=== PATIENT | female | born 1955 | race Caucasian/White ===

== ENCOUNTER 2023-03-24 06:07 | Inpatient (IN) ==
[2023-03-24] MEDS ORDERED: NS 100 ML IV 100 ML ONE (06:53)
[2023-03-24] MEDS ORDERED: ANCEF VIAL 1 GRAM ONE (06:53)
[2023-03-24] MEDS ORDERED: LR 1,000 ML IV 1,000 ML IV ONE ×2 (06:53→08:47)
[2023-03-24] MEDS ORDERED: PEPCID 20 MG VIAL ONE (07:03)
[2023-03-24] MEDS ORDERED: ZOFRAN INJ 4 MG VIAL ONE (07:03)
[2023-03-24] MEDS ORDERED: REGLAN INJ 10 MG VIAL ONE (07:08)
[2023-03-24] MEDS ORDERED: DUONEB 0.5 MG/3 MG (3 mL) NEB ONE (07:18)
[2023-03-24] MEDS ORDERED: KETAMINE 50 MG/5 ML-NACL SYRNG ONE (07:24)
[2023-03-24] MEDS ORDERED: DECADRON INJ ONE (07:25)
[2023-03-24] MEDS ORDERED: FENTANYL VIAL INJ 100 mcg ONE (07:25)
[2023-03-24] MEDS ORDERED: BRIDION ONE (07:25)
[2023-03-24] MEDS ORDERED: VERSED ONE (07:25)
[2023-03-24] MEDS ORDERED: ROBINUL ONE (07:25)
[2023-03-24] MEDS ORDERED: XYLOCAINE 2 % (PLAIN) ONE (07:25)
[2023-03-24] MEDS ORDERED: OFIRMEV IV 1000 MG VIAL 1,000 MG/100 ML VIAL IV ONE (07:25)
[2023-03-24] MEDS ORDERED: ZEMURON 100 MG VIAL ONE (07:25)
[2023-03-24] MEDS ORDERED: DIPRIVAN VIAL 20 ML ONE (07:25)
[2023-03-24] MEDS ORDERED: PRECEDEX INJ VIAL IVP ONE (07:26)
[2023-03-24] MEDS ORDERED: POLYMYXIN B SULFATE ONE (07:31)
[2023-03-24] MEDS ORDERED: VENTOLIN or PROAIR HFA ONE (07:48)
[2023-03-24] MEDS ORDERED: ULTANE GAS IN ONE (07:48)
[2023-03-24 07:52] VITALS: BMI 25.7
[2023-03-24] MEDS ORDERED: MARCAINE 0.5% ONE (08:09)
[2023-03-24] MEDS ORDERED: NEO-SYNEPHRINE INJ ONE (08:23)
[2023-03-24] MEDS ORDERED: DILAUDID INJ ONE (08:41)
[2023-03-24] MEDS ORDERED: NORMODYNE INJ 20 MG VIAL ONE (08:45)
[2023-03-24] MEDS ORDERED: BENADRYL INJ 50 MG VIAL IVP PRN (09:38)
[2023-03-24] MEDS ORDERED: DILAUDID INJ IVP PRN (09:38)
[2023-03-24] MEDS ORDERED: BARHEMSYS INJ IVP PRN (09:38)
[2023-03-24] MEDS: D5 1/2 NS 1,000 ML 1,000 ML IV SCH ×3 (11:21→20:25)
[2023-03-24] MEDS: ZOFRAN INJ 4 MG VIAL IVP SCH ×3 (11:21→17:29)
[2023-03-24] MEDS: PROTONIX INJ 40 MG VIAL IVP SCH ×2 (11:21→20:25)
[2023-03-24] MEDS: LOVENOX INJ 40 MG SYR SC SCH (11:29)
[2023-03-24] MEDS: DUONEB 0.5 MG/3 MG (3 mL) NEB SCH ×2 (12:58→16:28)
[2023-03-24] MEDS: ANCEF VIAL 1 GRAM IVP SCH ×2 (13:23→22:45)
[2023-03-24] MEDS: NICOTINE PATCH TD SCH (13:23)
[2023-03-24] MEDS: DILAUDID INJ IVP PRN ×2 (17:28→22:58)
[2023-03-25] MEDS: D5 1/2 NS 1,000 ML 1,000 ML IV SCH ×4 (03:55→17:03)
[2023-03-25] MEDS: ZOFRAN INJ 4 MG VIAL IVP SCH (04:05)
[2023-03-25] MEDS: ANCEF VIAL 1 GRAM IVP SCH ×3 (05:29→21:49)
[2023-03-25] MEDS: DUONEB 0.5 MG/3 MG (3 mL) NEB SCH ×5 (06:00→16:20)
[2023-03-25 06:25] LABS: BASOPHILS # (AUTO) 0.1 X10^3/uL (0.0-0.1); BASOPHILS % (AUTO) 0.5 % (0.2-1.0); HEMATOCRIT 42.3 % (36.0-47.0); HEMOGLOBIN 14.4 g/dL (12.0-16.0); LYMPHOCYTES # (AUTO) 2.3 X10^3/uL (1.3-2.9); LYMPHOCYTES % (AUTO) 11.5 % (21.0-51.0); MEAN CORPUSCULAR HEMOGLOBIN 29.9 pg (27.0-34.0); MEAN PLATELET VOLUME 8.6 fL (7.4-11.0); MONOCYTES # (AUTO) 1.1 x10^3/uL (0.3-0.8); MONOCYTES % (AUTO) 5.6 % (0.0-13.0); NEUTROPHILS # (AUTO) 16.7 x10^3/uL (2.2-4.8); NEUTROPHILS % (AUTO) 82.4 % (42.0-75.0); PLATELET COUNT 469 X10^3/uL (150.0-450.0); RED BLOOD COUNT 4.81 X10^6/uL (3.5-5.4); RED CELL DISTRIBUTION WIDTH 14.4 % (11.6-16.5); WHITE BLOOD COUNT 20.2 X10^3/uL (3.6-10.0)
[2023-03-25 06:36] LABS: ALANINE AMINOTRANSFERASE 11 Units/L (12-78); ALBUMIN 2.4 g/dL (3.4-5.0); ALKALINE PHOSPHATASE 140 Units/L (46-116); ASPARTATE AMINO TRANSFERASE 38 Units/L (15-37); BLOOD UREA NITROGEN 5 mg/dL (7-18); CARBON DIOXIDE 31.3 mmol/L (21-32); CHLORIDE 92 mmol/L (98-107); COR CA(FOR HYPOALB) 9.3 mg/dL (8.5-10.1); CREATININE 0.64 mg/dL (0.55-1.02); GLUCOSE 102 mg/dL (65-99); SODIUM 130 mmol/L (136-145); TOTAL PROTEIN 6.1 g/dL (6.4-8.2); eGFR NON BLACK RACES > 60 (>60)
[2023-03-25 06:37] LABS: POTASSIUM 2.7 mmol/L (3.5-5.1)
[2023-03-25] MEDS ORDERED: CONSULT PHARMACY - POTASSIUM & MAGNESIUM XX SCH ×2 (07:00→21:00)
[2023-03-25] MEDS ORDERED: K-RIDER 10 MEQ/NS 100 ML 10 MEQ/100 ML BAG IV SCH (08:00)
[2023-03-25] MEDS ORDERED: XANAX PO PRN (08:47)
[2023-03-25] MEDS: DILAUDID INJ IVP PRN (09:31)
[2023-03-25] MEDS ORDERED: POTASSIUM CHL 60 MEQ/NS 0.45% 500 ML 60 MEQ/500 ML BAG IV NR (10:00)
[2023-03-25] MEDS ORDERED: ZOFRAN INJ 4 MG VIAL IVP PRN (10:07)
[2023-03-25] MEDS: CYMBALTA PO SCH (10:12)
[2023-03-25] MEDS: PROTONIX INJ 40 MG VIAL IVP SCH ×2 (10:12→20:17)
[2023-03-25] MEDS: LOVENOX INJ 40 MG SYR SC SCH (10:12)
[2023-03-25] MEDS: NICOTINE PATCH TD SCH (10:13)
[2023-03-25] MEDS ORDERED: ULTRAM PO PRN (11:56)
[2023-03-25] MEDS ORDERED: PriLOSEC PO SCH (12:00)
[2023-03-25] MEDS ORDERED: PATIENT'S HOME MEDICATION PO PRN (12:03)
[2023-03-25] MEDS: VITAMIN D3 25 mcg (1,000 UNITS) PO SCH (13:26)
[2023-03-25] MEDS: NEURONTIN CAP 400 MG PO SCH ×2 (13:27→20:16)
[2023-03-25] MEDS: KEPPRA TAB 500 MG PO SCH ×2 (13:29→20:16)
--- NOTE | 2023-03-25 16:40 | DR.PROGNOT ---
HOSPITAL PROGRESS NOTE Progress Note for Day of: Progress Note Date: 03/25/23 Chief Complaint Chief Complaint: Patient is doing well today, O2 sat was slightly low and improved with the treatment. Was out of bed ambulatory. Minimal drainage in EDWARD drain. WBC was up to 20.2... K 2.7 Stable vital signs and afebrile Past Medical Family Social History Past Med/Fam/Surg Hx: No changes since H&P Allergies: Allergies oral narcotics Adverse Reaction (Uncoded 03/24/23 07:53) NAUSEA Vital Signs Vital Signs: Vital Signs Temperature 98.7 F Pulse Rate 91 Respiratory Rate 20 Respiratory Rate 16 Respiratory Rate 18 Respiratory Rate 22 Blood Pressure 173/83 O2 Sat by Pulse Oximetry 97 O2 Sat by Pulse Oximetry 85 Physical Exam Oriented: Normal Eyes: Normal Throat: Normal Respiratory: Normal Cardiovascular: Normal GI:Auscultation: Decreased and Other (Soft and flat abdomen with incisional tenderness and slightly hypoactive bowel sounds.) Mood Description: Calm and Appropriate Speech Pattern: Clear and Appropriate Laboratory and Diagnostics 03/25/23 05:50 03/25/23 05:50 Labs: Laboratory WBC 20.2 X10^3/uL (3.6-10.0) H 03/25/23 05:50 RBC 4.81 X10^6/uL (3.5-5.4) 03/25/23 05:50 Hgb 14.4 g/dL (12.0-16.0) 03/25/23 05:50 Hct 42.3 % (36.0-47.0) 03/25/23 05:50 MCV 88.0 fL (80.0-100.0) 03/25/23 05:50 MCH 29.9 pg (27.0-34.0) 03/25/23 05:50 MCHC 34.0 g/dL (33.0-35.0) 03/25/23 05:50 RDW 14.4 % (11.6-16.5) 03/25/23 05:50 Plt Count 469 X10^3/uL (150.0-450.0) H 03/25/23 05:50 MPV 8.6 fL (7.4-11.0) 03/25/23 05:50 Neut % (Auto) 82.4 % (42.0-75.0) H 03/25/23 05:50 Lymph % (Auto) 11.5 % (21.0-51.0) L 03/25/23 05:50 [place] % (Auto) 5.6 % (0.0-13.0) 03/25/23 05:50 Eos % (Auto) 0.0 % (0.9-2.9) L 03/25/23 05:50 Baso % (Auto) 0.5 % (0.2-1.0) 03/25/23 05:50 Neut # (Auto) 16.7 x10^3/uL (2.2-4.8) H 03/25/23 05:50 Lymph # (Auto) 2.3 X10^3/uL (1.3-2.9) 03/25/23 05:50 [place] # (Auto) 1.1 x10^3/uL (0.3-0.8) H 03/25/23 05:50 Eos # (Auto) 0.0 x10^3/uL (0.0-0.2) 03/25/23 05:50 Baso # (Auto) 0.1 X10^3/uL (0.0-0.1) 03/25/23 05:50 Absolute Nucleated RBC 0.0 /100WBC 03/25/23 05:50 Sodium 130 mmol/L (136-145) L 03/25/23 05:50 Corrected Sodium TNP 03/25/23 05:50 Potassium 2.7 mmol/L (3.5-5.1) L* 03/25/23 05:50 Chloride 92 mmol/L (98-107) L 03/25/23 05:50 Carbon Dioxide 31.3 mmol/L (21-32) 03/25/23 05:50 BUN 5 mg/dL (7-18) L 03/25/23 05:50 Creatinine 0.64 mg/dL (0.55-1.02) 03/25/23 05:50 Est GFR (MDRD) Af Amer > 60 (>60) 03/25/23 05:50 Est GFR (MDRD) Non-Af > 60 (>60) 03/25/23 05:50 Glucose 102 mg/dL (65-99) H 03/25/23 05:50 Calcium 8.0 mg/dL (8.5-10.1) L 03/25/23 05:50 Corrected Calcium 9.3 mg/dL (8.5-10.1) 03/25/23 05:50 Magnesium 1.2 mg/dL (2.0-2.9) L 03/25/23 05:50 Total Bilirubin 0.30 mg/dL (0.2-1.0) 03/25/23 05:50 AST 38 Units/L (15-37) H 03/25/23 05:50 ALT 11 Units/L (12-78) L 03/25/23 05:50 Alkaline Phosphatase 140 Units/L (46-116) H 03/25/23 05:50 Total Protein 6.1 g/dL (6.4-8.2) L 03/25/23 05:50 Albumin 2.4 g/dL (3.4-5.0) L 03/25/23 05:50 Globulin 3.7 g/dL (2.5-4.5) 03/25/23 05:50 Albumin/Globulin Ratio 0.6 Ratio (1.1-2.1) L 03/25/23 05:50 Assessment and Plan 1: Postop laparotomy and repair of incarcerated ventral hernia. Same postoperative care 2: Hypokalemia. 3: COPD and chronic smoker. Same pulmonary care and incentive spirometer. DVT prophylaxis, Reorder home medications.
[2023-03-25] MEDS: REGLAN TAB 10 MG PO SCH ×2 (17:00→20:16)
[2023-03-25] MEDS ORDERED: ZOCOR TAB 20 MG PO SCH (21:00)
[2023-03-26] MEDS: DUONEB 0.5 MG/3 MG (3 mL) NEB SCH ×2 (00:25→05:30)
[2023-03-26] MEDS: D5 1/2 NS 1,000 ML 1,000 ML IV SCH ×2 (02:53→09:54)
[2023-03-26] MEDS: ANCEF VIAL 1 GRAM IVP SCH (05:18)
[2023-03-26] MEDS: REGLAN TAB 10 MG PO SCH (05:31)
[2023-03-26 06:33] VITALS: O2SAT 86
[2023-03-26] MEDS: LOVENOX INJ 40 MG SYR SC SCH (09:09)
[2023-03-26] MEDS: PROTONIX INJ 40 MG VIAL IVP SCH (09:10)
[2023-03-26] MEDS: KEPPRA TAB 500 MG PO SCH (09:14)
[2023-03-26] MEDS: NEURONTIN CAP 400 MG PO SCH (09:15)
[2023-03-26] MEDS: VITAMIN D3 25 mcg (1,000 UNITS) PO SCH (09:16)
[2023-03-26] MEDS: CYMBALTA PO SCH (09:16)
[2023-03-26] MEDS: NICOTINE PATCH TD SCH (09:17)
[2023-03-26 09:54] VITALS: BP 123/81; PULSE 117; RESP 20; TEMP 98
[2023-03-28] MEDS ORDERED: PATIENT'S HOME MEDICATION PO SCH (09:00)
== END 2023-03-26 10:55 | disposition home or self-care (01) | DRG 354 ==
LOC: SURG1 06:07 → ICU 09:58 → MED/SURG 15:22
PROVIDERS: ADMIT Surgery; ATTEND Surgery
DX: Z72.0 Tobacco use; E83.42 Hypomagnesemia; J44.9 Chronic obstructive pulmonary disease, unspecified; E87.1 Hypo-osmolality and hyponatremia; K66.0 Peritoneal adhesions (postprocedural) (postinfection); K43.6 Other and unspecified ventral hernia with obstruction, without gangrene; Z91.190 Patient's noncompliance with other medical treatment and regimen due to financial hardship; E87.6 Hypokalemia; R06.02 Shortness of breath; Z73.89 Other problems related to life management difficulty